=== PATIENT | male | born 1980 | race Caucasian/White ===

== ENCOUNTER 2016-03-29 19:19 | Emergency (ER) | payer OTHER ==
[~2016-03-29] VITALS: Ht 180.3 cm; Wt 67.5 kg
[~2016-03-29 19:19] MED LIST: CYCL-36 PO; NAPR550 PO; Z.0.NO CURRENT MEDS
[2016-03-29 19:25] VITALS: BP 116/78; PULSE 59; RESP 16; TEMP 98.7
--- NOTE | 2016-03-29 20:28 | PD ---
HPI Chief Complaint: Musculoskeletal Complaint Time Seen by Provider: 20:26 Travel History International Travel<30 days: No Contact w/Intl Traveler<30days: No Traveled to known affect area: No History of Present Illness HPI Patient is a 36-year-old male presenting with left wrist pain. 3 days ago he fell while on a skateboard. He had an outstretched hand. Pain is in the distal radius. 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 Pronating and supinating and extending the wrist worsens the pain. The pain does not radiate. He denies weakness or paresthesias. Has used ibuprofen and ice with minimal effect. PFSH Past Medical History Blood Disorders: No Cancer: No Cardiovascular Problems: No Chemotherapy: No Diminished Hearing: No Endocrine: No Gastrointestinal Disorders: No Genitourinary: No Immune Disorder: No Medical other: Yes (RIGHT HIP TISSUE REMOVAL S/P "BROWN RECLUSE BITE" PER PT) Musculoskeletal: Yes (RIGHT FOOT FX APPROX 15 YEARS AGO PER PATIENT) Neurologic: No Psychiatric: No Reproductive: No Respiratory: No Integumentary: Yes (MRSA INFECTIONS ON RT HAND) Immunizations Current: No Radiation Therapy: No Influenza Vaccination: No Past Surgical History Abdominal Surgery: No AICD: No Arteriovenous Shunt: No Cardiac Surgery: No Ear Surgery: No Endocrine Surgery: No Eye Surgery: No Genitourinary Surgery: No Gynecologic Surgery: No Insulin Pump: No Joint Replacement: No Neurologic Surgery: No Oral Surgery: No Pacemaker: No Thoracic Surgery: No Tonsillectomy: Yes Other Surgery: Yes (HAND SURG FOR MRSA X 4.) Social History Alcohol Use: Yes (BEER, OCCASIONALLY) Tobacco Use: Yes (1 PPD) Substance Use: No (DENIES) Allergies-Medications (Allergen,Severity, Reaction): Coded Allergies: Penicillin (Verified Allergy, Severe, "STOPPED BREATHING", 03/29/16) Reported Meds & Prescriptions Reported Meds & Active Scripts Active Diclofenac Sodium DR (Diclofenac Sodium) 75 Mg Tabdr 75 Mg PO BID Review of Systems Musculoskeletal: Positive: Other (see the history of present illness) Neurologic: No: Weakness, Focal Abnormalities, Paresthesia, Sensory Disturbance Physical Exam Narrative GENERAL: Well-developed and well-nourished adult male in no acute distress. SKIN: Warm and dry. Good turgor without tenting. HEAD: Normocephalic and atraumatic. CARDIOVASCULAR: Regular rate and rhythm without murmurs, rubs, clicks or gallops. Radial pulses 2+ bilaterally. Capillary refill less than 2 seconds distal to all fingers of left hand. RESPIRATORY: Clear to auscultation bilaterally with symmetrical rise and fall, no distress or use of accessory muscles. MUSCULOSKELETAL: Patient has some edema and point tenderness over the left distal radius without crepitus or step-offs. No ecchymosis. No ulnar tenderness. He can flex and extend the wrist but is somewhat limited in range of motion secondary to pain. Pain with palpation of the proximal and mid forearm, elbow and hand and fingers on the left. Negative left snuffbox tenderness and no pain with axial load on the thumb. Patient freely moving all four extremities spontaneously. Extremities without clubbing or cyanosis. No obvious deformities. NEUROLOGIC: CN II-XII grossly intact. Awake and alert.Sensation intact and strength 5/5 over radial, median, and ulnar nerve distributions bilaterally. Normal speech. PSYCHIATRIC: Appropriate mood and affect; insight and judgment normal. Data Data Last Documented VS Vital Signs Date Time Temp Pulse Resp B/P Pulse Ox O2 Delivery O2 Flow Rate FiO2 03/29/16 19:25 98.7 59 16 116/78 Orders Wrist, Complete ([id number]) (03/29/16 20:25) Splint Or Brace Apply/Monitor (03/29/16 20:53) [facility] Medical Decision Making Medical Screen Exam Complete: Yes Emergency Medical Condition: Yes Interpretation(s) Last 24 hours Impressions Wrist X-Ray 03/29/162024 Signed Impressions: Service Date/Time: Tuesday, March 29, 2016 20:24 - CONCLUSION: 1. Soft tissue swelling without fracture. Darryn Carcamo MD Differential Diagnosis Distal radius fracture versus wrist sprain versus contusion versus scaphoid fracture unlikely Narrative Course Patient's 36-year-old male with a fall on outstretched hand 3 days prior. He has tenderness over the distal radius. He is neurovascular intact with fairly good range of motion in the wrist. Ordered x-ray which shows soft tissue swelling without fracture or dislocation. Patient was given a prescription for diclofenac and Velcro wrist splint.See discharge paperwork for further instructions. The plan was discussed with the patient who acknowledged their understanding and agreement. Reinforced the follow-up with primary care is critically important. Patient instructed on emergent conditions that should prompt return to ED. Diagnosis Primary Impression: Left wrist sprain Qualified Code: S63.502A - Left wrist sprain, initial encounter Patient Instructions: General Instructions, Wrist Sprain (ED) Additional Instructions: Take medications as prescribed Apply ice every 1 to 2 hours as needed for pain Avoid maneuvers that aggravate pain Keep splint on while being active or using extremity Elevate when at rest Be aware that may take several weeks for sprains to heal fully Follow-up with PCP in 2-3 days Return to the ED for any acute worsening of symptoms Med/Other Pt SpecificInfo: Prescription(s) given Scripts Diclofenac Sodium DR 75 Mg Tabdr75 Mg PO BID #10 TAB Prov:Jasvir Jiang MD 03/29/16 Disposition: 01 DISCHARGE HOME Condition: Stable Jaime Reid III Mar 29, 2016 20:28
--- NOTE | 2016-03-29 20:45 | RADHPO ---
EXAM DATE/TIME: 03/29/2016 20:24 [facility] COMPARISON: No previous studies available for comparison. INDICATIONS : Left wrist pain after fall. MEDICAL HISTORY : None. SURGICAL HISTORY : None. ENCOUNTER: Initial ACUITY: 1 day PAIN SCORE: 4/10 LOCATION: Left proximal wrist FINDINGS: Three view examination of the left wrist demonstrates soft tissue swelling without dislocation, or fr acture. The carpal bones are in normal alignment. The joint spaces are maintained. Bony mineraliza tion is normal. CONCLUSION: 1. Soft tissue swelling without fracture. Darryn Carcamo MD on March 29, 2016 at 20:39 Board Certified Radiologist. This report was verified electronically.
[2016-03-29] MEDS ORDERED: DICL75TA PO (20:54)
== END 2016-03-29 21:20 | disposition home or self-care (01) ==
LOC: PHEFT 19:19
DX: M25.532 Pain in left wrist (principal); Y92.9 Unspecified place or not applicable; S63.502A Unspecified sprain of left wrist, initial encounter; V00.131A Fall from skateboard, initial encounter; Y93.51 Activity, roller skating (inline) and skateboarding
CPT/HCPCS: 73110; 99283; L3908